=== PATIENT | female | born 1995 | race Caucasian/White ===

== ENCOUNTER 2021-05-11 05:37 | Emergency (ER) | payer OTHER ==
[~2021-05-11] VITALS: Ht 162.6 cm; Wt 77.3 kg
[2021-05-11] MEDS ORDERED: ALBUTEROL 90 MCG/ACT 8GM HFA INHALER INH ONE (07:00)
[2021-05-11] MEDS ORDERED: KETOROLAC TROMETHAMINE 10 MG TAB PO ONE (07:00)
[2021-05-11] MEDS ORDERED: ONDANSETRON 4MG ORAL DISINTEGRATING TAB PO ONE (07:00)
[2021-05-11] MEDS ORDERED: VENTAER INH (08:26)
[2021-05-11 08:31] VITALS: BP 121/70
== END 2021-05-11 08:33 | disposition home or self-care (01) ==
LOC: M ED 05:37
DX: J06.9 Acute upper respiratory infection, unspecified (principal); B34.8 Other viral infections of unspecified site

== ENCOUNTER → 2021-07-19 | Outpatient (CLI) | payer OTHER ==
[~2021-07-19] MED LIST: VENTAER INH
== END ==
LOC: M SOG 11:03
PROVIDERS: ATTEND Orthopaedic Surgery
DX: M54.2 Cervicalgia (principal); M54.6 Pain in thoracic spine

== ENCOUNTER → 2022-12-11 | Outpatient (CLI) | payer OTHER | LOC: M SOG 14:50 | PROVIDERS: ATTEND Physician Assistant | DX: M79.641 Pain in right hand (principal); M79.642 Pain in left hand ==

== ENCOUNTER 2022-12-27 07:28 | Emergency (ER) | payer OTHER ==
[~2022-12-27] VITALS: Ht 165.1 cm; Wt 81.8 kg
[2022-12-27] MEDS ORDERED: ESOM40CA35 (07:41)
[2022-12-27] MEDS ORDERED: HYDR-643 (07:41)
[2022-12-27] MEDS ORDERED: FLUO1TAB (07:41)
[2022-12-27] MEDS ORDERED: CYCL5TAB (07:41)
[2022-12-27] MEDS ORDERED: PERCOCET 5MG/325MG TAB PO ONE (08:50)
[2022-12-27 10:50] VITALS: BP 120/76; TEMP 97.9; O2SAT 97
== END 2022-12-27 10:58 | disposition home or self-care (01) ==
LOC: M ED 07:28
DX: S30.0XXA Contusion of lower back and pelvis, initial encounter (principal); W18.2XXA Fall in (into) shower or empty bathtub, initial encounter; Y92.9 Unspecified place or not applicable; Z79.51 Long term (current) use of inhaled steroids; Z79.899 Other long term (current) drug therapy

== ENCOUNTER 2023-03-02 22:00 | Emergency (ER) | payer OTHER ==
[~2023-03-02] VITALS: Ht 165.1 cm; Wt 76.4 kg
[~2023-03-02 22:00] MED LIST changes: +CYCL5TAB; +ESOM40CA35; +FLUO1TAB; +HYDR-643
[2023-03-03] MEDS ORDERED: IBUPROFEN 800 MG TAB PO ONE (01:05)
[2023-03-03] MEDS ORDERED: ONDANSETRON 4MG ORAL DISINTEGRATING TAB PO ONE (01:05)
[2023-03-03] MEDS ORDERED: AUGMENTIN 875 MG TAB PO ONE (01:05)
[2023-03-03] MEDS ORDERED: AMOX875T2 PO (01:33)
[2023-03-03] MEDS ORDERED: BACITRACIN OINTMENT 30GM TUBE TOP STA (01:34)
[2023-03-03 01:46] VITALS: BP 124/80; TEMP 98.8; O2SAT 100
== END 2023-03-03 01:47 | disposition home or self-care (01) ==
LOC: M ED 22:00
DX: S61.232A Puncture wound without foreign body of right middle finger without damage to nail, initial encounter (principal); S61.234A Puncture wound without foreign body of right ring finger without damage to nail, initial encounter; W54.0XXA Bitten by dog, initial encounter; Y92.009 Unspecified place in unspecified non-institutional (private) residence as the place of occurrence of the external cause; Y93.89 Activity, other specified; Y99.9 Unspecified external cause status; F41.9 Anxiety disorder, unspecified; K21.9 Gastro-esophageal reflux disease without esophagitis; Z79.899 Other long term (current) drug therapy

== ENCOUNTER 2023-04-05 17:23 | Inpatient (IN) | payer OTHER ==
[~2023-04-05] VITALS: Ht 162.6 cm; Wt 76.0 kg
[~2023-04-05 17:23] MED LIST changes: +AMOX875T2 PO; -CYCL5TAB; +CYCL5TAB PO; -ESOM40CA35; +ESOM40CA35 PO; -FLUO1TAB; +FLUO1TAB PO; -HYDR-643; +HYDR-643 PO
[2023-04-05] MEDS: ACETAMINOPHEN TAB 650MG DOSE (2X325MG) PO ONE (18:55)
[2023-04-05 19:18] LABS: RSV AMPLIFICATION NEGATIVE (NEGATIVE)
[2023-04-05 19:42] LABS: BASO % 0.1 % (0.0-1.0); HEMATOCRIT 41.8 % (36.0-47.0); HEMOGLOBIN 14.5 g/dl (12.0-15.5); LYMPH # 1.4 10^3/uL (1.5-5.0); LYMPH % 6.4 % (24.0-44.0); MEAN CORPUSCULAR HEMOGLOBIN 30.1 pg (27.0-33.0); MEAN CORPUSCULAR HGB CONC 34.7 g/dl (32.0-36.5); MEAN CORPUSCULAR VOLUME 86.7 fl (80.0-96.0); MONO # 1.2 10^3/uL (0.0-0.8); MONO % 5.2 % (2.0-8.0); NEUTROPHILS # 19.4 10^3/uL (1.5-8.5); NEUTROPHILS % 87.8 % (36.0-66.0); PLATELET COUNT, AUTOMATED 358 10^3/uL (150-450); RED BLOOD COUNT 4.82 10^6/uL (4.00-5.40); WHITE BLOOD COUNT 22.1 10^3/uL (4.0-10.0)
[2023-04-05] MEDS: ONDANSETRON 4MG 2ML VIAL IV ONE (19:44)
[2023-04-05] MEDS: AMOXICILLIN 500 MG CAP PO ONE (19:51)
[2023-04-05] MEDS: KETOROLAC 30 MG/ML 1ML VIAL IV ONE (19:52)
[2023-04-05] MEDS: NS 1,000 ML IV ONE (20:21)
[2023-04-05] MEDS ORDERED: ISOVUE-370 76% 100ML VIAL As Ordered ONE (21:26)
[2023-04-05] MEDS: cefTRIAXone SOD 1 GM in D5W MINI-BAG PLUS 50 ML IV ONE (21:39)
[2023-04-06] VITALS (9 sets, daily range): BP systolic 113–132; BP diastolic 63–77; TEMP 97.4–98.7; O2SAT 85–100
[2023-04-06 00:18] LABS: BASO % 0.2 % (0.0-1.0); HEMATOCRIT 37.6 % (36.0-47.0); HEMOGLOBIN 12.8 g/dl (12.0-15.5); LYMPH # 1.7 10^3/uL (1.5-5.0); LYMPH % 10.6 % (24.0-44.0); MEAN CORPUSCULAR HEMOGLOBIN 30.1 pg (27.0-33.0); MEAN CORPUSCULAR VOLUME 88.5 fl (80.0-96.0); MONO # 0.9 10^3/uL (0.0-0.8); MONO % 5.8 % (2.0-8.0); NEUTROPHILS # 13.4 10^3/uL (1.5-8.5); NEUTROPHILS % 83.1 % (36.0-66.0); PLATELET COUNT, AUTOMATED 305 10^3/uL (150-450); RED BLOOD COUNT 4.25 10^6/uL (4.00-5.40); WHITE BLOOD COUNT 16.2 10^3/uL (4.0-10.0)
[2023-04-06] MEDS ORDERED: HOME MED LIST COMPLETE! XX SCH (01:05)
[2023-04-06] MEDS ORDERED: KETOROLAC 30 MG/ML 1ML VIAL IV SCH (02:00)
[2023-04-06] MEDS ORDERED: ALBUTEROL 90 MCG/ACT 8GM HFA INHALER INH PRN (02:00)
[2023-04-06] MEDS ORDERED: ACETAMINOPHEN TAB 650MG DOSE (2X325MG) PO PRN (02:00)
[2023-04-06] MEDS: KETOROLAC 30 MG/ML 1ML VIAL IV PRN (03:07)
[2023-04-06] MEDS: ONDANSETRON 4MG 2ML VIAL IV PRN (03:44)
[2023-04-06 06:31] LABS: BASO % 0.1 % (0.0-1.0); EOS # 0.1 10^3/uL (0.0-0.5); EOS % 0.3 % (0.0-3.0); HEMATOCRIT 36.6 % (36.0-47.0); HEMOGLOBIN 12.4 g/dl (12.0-15.5); LYMPH # 1.5 10^3/uL (1.5-5.0); LYMPH % 9.9 % (24.0-44.0); MEAN CORPUSCULAR HEMOGLOBIN 29.9 pg (27.0-33.0); MEAN CORPUSCULAR HGB CONC 33.9 g/dl (32.0-36.5); MEAN CORPUSCULAR VOLUME 88.2 fl (80.0-96.0); MONO % 6.4 % (2.0-8.0); NEUTROPHILS # 12.2 10^3/uL (1.5-8.5); PLATELET COUNT, AUTOMATED 288 10^3/uL (150-450); RED BLOOD COUNT 4.15 10^6/uL (4.00-5.40); WHITE BLOOD COUNT 14.8 10^3/uL (4.0-10.0)
[2023-04-06 07:00] LABS: ALBUMIN 3.5 G/DL (3.2-5.2); ALKALINE PHOSPHATASE 78 U/L (46-116); ALT/SGPT 19 U/L (7.0-40); AST/SGOT < 8 U/L (<34); BILIRUBIN,TOTAL 0.9 MG/DL (0.3-1.2); BLOOD UREA NITROGEN 9 MG/DL (9-23); CALCIUM LEVEL 8.6 MG/DL (8.5-10.1); CARBON DIOXIDE LEVEL 21 MMOL/L (20-31); CHLORIDE LEVEL 112 MMOL/L (98-107); CREATININE FOR GFR 0.58 MG/DL (0.55-1.30); GLOMERULAR FILTRATION RATE > 60.0 (>60); GLUCOSE, FASTING 95 MG/DL (60-100); POTASSIUM SERUM 3.4 MMOL/L (3.5-5.1); SODIUM LEVEL 140 MMOL/L (136-145); TOTAL PROTEIN 6.6 G/DL (5.7-8.2)
[2023-04-06] MEDS: DOCUSATE SODIUM 100MG CAPSULE PO SCH (08:10)
[2023-04-06] MEDS: PANTOPRAZOLE 40MG VIAL IV SCH (08:11)
[2023-04-06] MEDS: ENOXAPARIN 40MG/0.4ML SYRINGE (J1650 PER 10MG) SC SCH (08:11)
[2023-04-06] MEDS: FLUoxetine 10 MG CAP PO SCH (08:42)
[2023-04-06] MEDS ORDERED: CYCLOBENZAPRINE 5MG TABLET PO PRN (09:00)
[2023-04-06] MEDS ORDERED: cefTRIAXone SOD 1GM VIAL IM SCH (09:00)
[2023-04-06] MEDS: ALBUTEROL 90 MCG/ACT 8GM HFA INHALER INH PRN (09:40)
[2023-04-06] MEDS ORDERED: AMPICILLIN SOD/SULBACTAM SOD 1.5 GM in D5W MINI-BAG PLUS 50 ML IV SCH (12:35)
[2023-04-06] MEDS: AMPICILLIN SOD/SULBACTAM SOD 3 GM in D5W MINI-BAG PLUS 100 ML IV SCH (14:54)
[2023-04-06] MEDS ORDERED: cefTRIAXone SOD 1 GM in D5W MINI-BAG PLUS 50 ML IV SCH (22:00)
[2023-04-07 05:13] VITALS: BP 101/64; TEMP 98.2; O2SAT 97
[2023-04-07 06:10] LABS: BASO % 0.3 % (0.0-1.0); EOS # 0.5 10^3/uL (0.0-0.5); EOS % 4.7 % (0.0-3.0); HEMATOCRIT 35.6 % (36.0-47.0); LYMPH # 1.9 10^3/uL (1.5-5.0); LYMPH % 18.1 % (24.0-44.0); MEAN CORPUSCULAR HEMOGLOBIN 29.8 pg (27.0-33.0); MEAN CORPUSCULAR HGB CONC 33.7 g/dl (32.0-36.5); MEAN CORPUSCULAR VOLUME 88.3 fl (80.0-96.0); MONO # 0.7 10^3/uL (0.0-0.8); MONO % 6.5 % (2.0-8.0); NEUTROPHILS # 7.5 10^3/uL (1.5-8.5); NEUTROPHILS % 70.1 % (36.0-66.0); PLATELET COUNT, AUTOMATED 296 10^3/uL (150-450); RED BLOOD COUNT 4.03 10^6/uL (4.00-5.40); WHITE BLOOD COUNT 10.6 10^3/uL (4.0-10.0)
[2023-04-07 06:44] LABS: BLOOD UREA NITROGEN 10 MG/DL (9-23); CALCIUM LEVEL 8.8 MG/DL (8.5-10.1); CARBON DIOXIDE LEVEL 25 MMOL/L (20-31); CHLORIDE LEVEL 110 MMOL/L (98-107); CREATININE FOR GFR 0.62 MG/DL (0.55-1.30); GLOMERULAR FILTRATION RATE > 60.0 (>60); GLUCOSE, FASTING 95 MG/DL (60-100); POTASSIUM SERUM 3.5 MMOL/L (3.5-5.1); SODIUM LEVEL 141 MMOL/L (136-145)
[2023-04-07] MEDS ORDERED: LEVO1TAB40 PO (09:46)
[2023-04-07] MEDS ORDERED: AMOX875T2 PO (09:46)
[2023-04-07] MEDS ORDERED: PROBCAP14 PO (09:46)
== END 2023-04-07 11:54 | disposition home or self-care (01) | DRG 153 ==
LOC: M ED 17:23 → M ED INP 04-06 02:07 → ENRESERV 04-06 05:39 → M ICU 04-06 06:34 → M MSPAV 04-06 17:58
PROVIDERS: ADMIT Internal Medicine; ATTEND Internal Medicine Nephrology
DX: J03.90 Acute tonsillitis, unspecified (principal); J45.909 Unspecified asthma, uncomplicated; M54.9 Dorsalgia, unspecified; G89.29 Other chronic pain; F43.10 Post-traumatic stress disorder, unspecified; K21.9 Gastro-esophageal reflux disease without esophagitis; F32.A Depression, unspecified; F41.9 Anxiety disorder, unspecified; N30.90 Cystitis, unspecified without hematuria; Z79.899 Other long term (current) drug therapy; Z11.52 Encounter for screening for COVID-19

== ENCOUNTER 2023-09-18 21:11 | Emergency (ER) | payer OTHER ==
[~2023-09-18] VITALS: Ht 165.1 cm; Wt 82.5 kg
[~2023-09-18 21:11] MED LIST changes: +LEVO1TAB40 PO; +PROBCAP14 PO
[2023-09-18 21:12] VITALS: BP 141/90; TEMP 97; O2SAT 97
== END 2023-09-19 05:37 | disposition left against medical advice (07) ==
LOC: M ED 21:11
DX: Z53.21 Procedure and treatment not carried out due to patient leaving prior to being seen by health care provider (principal)